=== PATIENT | female | born 1960 | race Caucasian/White ===

== ENCOUNTER → 2016-09-07 | Outpatient (CLI) | payer OTHER | END | disposition home or self-care (01) | LOC: CFH 09:17 | PROVIDERS: ATTEND Internal Medicine | DX: Z12.31 Encounter for screening mammogram for malignant neoplasm of breast (principal) | CPT/HCPCS: G0202 ==

== ENCOUNTER → 2017-01-20 | Outpatient (CLI) | payer OTHER ==
[~2017-01-20] MED LIST: REGADENOSON 0.4 MG/5 ML SYRINGE ONE
== END | disposition home or self-care (01) ==
LOC: CFH 12:35
PROVIDERS: ATTEND Physician Assistant
DX: I35.9 Nonrheumatic aortic valve disorder, unspecified (principal); I25.10 Atherosclerotic heart disease of native coronary artery without angina pectoris; E78.5 Hyperlipidemia, unspecified; E78.1 Pure hyperglyceridemia
CPT/HCPCS: 78452; 93017; A9502; J2785

== ENCOUNTER 2020-08-10 19:38 | Emergency (ER) | payer BC, OTHER ==
[~2020-08-10] VITALS: Ht 165.1 cm; Wt 70.8 kg
[2020-08-10] MEDS ORDERED: METOPROLOL TARTRATE 25 MG TAB PO ONE (20:00)
[2020-08-10] MEDS ORDERED: METOPROLOL TARTRATE 25 MG TAB ONE (20:13)
[2020-08-10 21:27] VITALS: BP 122/71
--- NOTE | 2020-08-10 21:27 | NUR ---
PT CONVERTED FROM SVT WITH VAGAL
== END 2020-08-10 21:29 | disposition home or self-care (01) ==
LOC: ED 21:00
DX: I47.1 Supraventricular tachycardia (principal)
CPT/HCPCS: 93005; 99283

== ENCOUNTER 2020-10-30 11:55 | Day surgery (SDC) | payer BC ==
[~2020-10-30] VITALS: Ht 165.1 cm; Wt 68.0 kg
[2020-10-30] MEDS ORDERED: METO25TA35 PO (12:23)
[2020-10-30] MEDS ORDERED: ATOR20TA37 PO (12:23)
[2020-10-30] MEDS ORDERED: OMEG1000 PO (12:24)
[2020-10-30] MEDS ORDERED: GING500C PO (12:25)
[2020-10-30] MEDS ORDERED: CHOL10003 PO (12:25)
[2020-10-30] MEDS ORDERED: ASPI-963 PO (12:26)
[2020-10-30] MEDS ORDERED: SELE200T10 PO (12:27)
[2020-10-30] MEDS ORDERED: SOY155CA PO (12:27)
[2020-10-30] MEDS ORDERED: [UNRECOGNIZED DRUG - OTHER] (12:28)
[2020-10-30] MEDS ORDERED: MAGNESIUM COMPLEX (12:28)
[2020-10-30 12:30] VITALS: BP 111/64
[2020-10-30] MEDS ORDERED: PLEASE ENTER ALLERGIES MC SCH (12:30)
[2020-10-30] MEDS ORDERED: SODIUM CHLORIDE 0.9% 1,000 ML IV SCH (12:30)
[2020-10-30] MEDS ORDERED: PLEASE ENTER HEIGHT AND WEIGHT MC SCH (12:30)
[2020-10-30 12:48] LABS: INTERNATIONAL NORMALIZED RATIO 1.56 (0.93-1.1); PROTHROMBIN TIME 16.5 Seconds (9.6-11.5)
[2020-10-30 12:49] LABS: ANION GAP 6 mmol/L (5-15); CALCIUM 9.8 mg/dL (8.5-10.1); CHLORIDE 107 mmol/L (98-107); CREATININE 0.78 mg/dL (0.55-1.02)
[2020-10-30] MEDS ORDERED: FENTANYL PF 100 MCG/2ML ONE (13:55)
[2020-10-30] MEDS ORDERED: MIDAZOLAM 1 MG/ML, 5ML ONE (13:55)
[2020-10-30] MEDS ORDERED: ADENOSINE 6 MG/2 ML ONE (13:56)
[2020-10-30] MEDS ORDERED: ISOPROTERENOL 0.2MG/ML, 5ML ONE (13:56)
[2020-10-30] MEDS ORDERED: LIDOCAINE 2%, 20ML ONE (13:56)
[2020-10-30 20:58] VITALS: BP 112/75
== END 2020-10-30 21:38 | disposition home or self-care (01) ==
LOC: CACL 11:55 → 5SO 15:23 → CACL 21:38
PROVIDERS: ATTEND Internal Medicine Clinical Cardiac Electrophysiology
DX: I47.1 Supraventricular tachycardia (principal); F12.10 Cannabis abuse, uncomplicated; Z79.82 Long term (current) use of aspirin; Z79.891 Long term (current) use of opiate analgesic; Z79.899 Other long term (current) drug therapy
CPT/HCPCS: 36415; 71046; 80048; 85610; 93613; 93623; 93653; 99156; 99157; C1730; C1766; C1769; C1894; C2630; J2250; J3010; G0378; J0153